=== PATIENT | female | born 1950 | race African-American/Black ===

== ENCOUNTER 2016-04-19 09:20 | Inpatient (IN) | payer BC ==
[~2016-04-19] VITALS: Ht 177.8 cm; Wt 84.8 kg
[2016-04-19] VITALS (13 sets, daily range): BP systolic 128–150; BP diastolic 68–90
--- NOTE | 2016-04-19 07:59 | Pre-Procedure Note/Attestation ---
Pre-Procedure Note/Attestation Complete Prior to Procedure Planned Procedure: bilateral Procedure Narrative: Posterior lumbar wound irrigation and debridement and removal of posterior interspinous metallic hardware, possible removal of the interspinous graft, revision of lumbar wound Attestation I attest that I discussed the nature of the procedure; its benefits; risks and complications; and alternatives (and the risks and benefits of such alternatives ), prior to the procedure, with the patient (or the patient's legal inside outside sales representative). I attest that, if there was a reasonable possibility of needing a blood transfusion, the patient (or the patient's legal inside outside sales representative) was given the [facility] standardized written summary, pursuant to the Frankie Anil Blood Safety Act ([place] Health and Safety Code # 1645, as amended). I attest that I re-evaluated the patient just prior to the surgery and that there has been no change in the patient's H&P, except as documented below: RUSTAM MIRAMONTES Apr 19, 2016 07:59
[2016-04-19] MEDS ORDERED: ATENOLOL25 MG ORAL (10:53)
[2016-04-19] MEDS ORDERED: ASPIRIN81 MG ORAL (10:53)
[2016-04-19] MEDS ORDERED: LOSARTAN POTASS50 MG ORAL (10:53)
[2016-04-19] MEDS ORDERED: LIPITOR20 MG ORAL (10:53)
[2016-04-19] MEDS ORDERED: HYDROCHLOROTHIA25 MG ORAL (10:53)
[2016-04-19] MEDS ORDERED: HUMALOG MI100 UNIT/7 SUBQ (10:54)
[2016-04-19] MEDS ORDERED: LANTUS SOL100 UNIT/1 SUBQ (10:54)
[2016-04-19] MEDS ORDERED: Vancomycin 1gm/D5W 275ml IVPB ONE ×2 (11:00)
[2016-04-19] MEDS ORDERED: Pantoprazole Inj IVP ONE (11:00)
[2016-04-19] MEDS ORDERED: LR 1000ml 1,000 ML IVLG SCH (12:14)
--- NOTE | 2016-04-19 12:14 | Anethesia Preoperative Eval ---
Anesthesia Pre-op PMH/ROS General Date of Evaluation: Apr 19, 2016 Time of Evaluation: 13:41 Anesthesiologist: Paco ASA Score: ASA 3 Mallampati Score Class I : Soft palate, uvula, fauces, pillars visible Class II: Soft palate, uvula, fauces visible Class III: Soft palate, base of uvula visible Class IV: Only hard plate visible Mallampati Classification: Class II Surgeon: Xiomy Diagnosis: Back Pain Surgical Procedure: Remove L3-4 Hardware, Closure with a drain Anesthesia History: none Family History: no anesthesia problems Allergies: Coded Allergies: No Known Allergies (Unverified , 04/19/16) Medications: see eMAR Past Medical History Cardiovascular: Reports: CAD - Andioplasty, HTN Pulmonary: Reports: asthma, other - R Upper Lobectomy Endocrine: Reports: DM Musculoskeletal/Integumentary: Reports: DDD PSxH Narrative: JULIÁN, HHR, R upper Lobectomy, Angioplasty, Lumbar Fusion Anesthesia Pre-op Phys. Exam Physician Exam Last Vital Signs Date Time Temp Pulse Resp B/P Pulse Ox O2 Delivery O2 Flow Rate FiO2 04/19/16 10:09 97.7 69 18 145/90 99 Room Air Constitutional: NAD Neurologic: CN 2-12 intact Cardiovascular: RRR Respiratory: CTA Gastrointestinal: S/NT/ND Airway Exam Mallampati Score: Class II MO: limited ROM: limited Teeth: intact Anesthesia Pre-op A/P Risk Assessment & Plan Assessment: ASA 3 Plan: GA, BIS, Glidescope Pre-Antibiotics Dru Gram Vancomycin IV Given Within 1 Hr of Incision: Yes Time Given: 13:41 Delgado Antonio MD Apr 19, 2016 12:14
[2016-04-19] MEDS ORDERED: DiphenhydrAMINE 50mg/ml Inj IVP PRN ×2 (12:15→17:45)
[2016-04-19] MEDS ORDERED: Norco 5mg/325mg tab ORAL PRN ×2 (12:15→17:15)
[2016-04-19] MEDS ORDERED: Ketorolac 30mg Inj IV PRN ×2 (12:15→17:15)
[2016-04-19] MEDS ORDERED: Atropine Inj 1mg/10ml Syr IV PRN ×2 (12:15→17:15)
[2016-04-19] MEDS ORDERED: Metoclopramide 10mg/2ml Inj IVP PRN ×2 (12:15→17:15)
[2016-04-19] MEDS ORDERED: Hydromorphone 0.5mg/0.5ml inj IVP PRN (12:15)
[2016-04-19] MEDS ORDERED: fentaNYL 100 mcg/2 mL IV PRN (12:15)
[2016-04-19] MEDS ORDERED: LORazepam Inj 2mg/ml 1ml IV PRN ×2 (12:15→17:15)
[2016-04-19] MEDS ORDERED: Norco 7.5mg/325mg tab ORAL PRN ×3 (12:15→17:15)
[2016-04-19] MEDS ORDERED: Ketorolac 60mg Inj IV PRN ×2 (12:15→17:15)
[2016-04-19] MEDS ORDERED: Meperidine 25mg/ml Inj IV PRN ×2 (12:15→17:15)
[2016-04-19] MEDS ORDERED: Oxycodone/Acetaminophen 5-325 ORAL PRN ×2 (12:15→17:15)
[2016-04-19] MEDS ORDERED: Labetalol 5mg/ml 20ml vial IV PRN ×2 (12:15→17:15)
[2016-04-19] MEDS ORDERED: Midazolam 2mg/2ml Inj IVP PRN ×2 (12:15→17:15)
--- NOTE | 2016-04-19 12:20 | Immediate Post-Op Evaluation ---
Immediate Post-Op Evalulation Immediate Post-Op Evalulation Procedure: Remove L3-4 Hardware, Closure with a drain Date of Evaluation: Apr 19, 2016 Time of Evaluation: 16:29 IV Fluids: 900 LR Blood Products: 0 Estimated Blood Loss: 25 Urinary Output: 0 Blood Pressure Systolic: 133 Blood Pressure Diastolic: 76 Pulse Rate: 74 Respiratory Rate: 16 O2 Sat by Pulse Oximetry: 100 Temperature (Fahrenheit): 97 Pain Score (1-10): 3 Nausea: No Vomiting: No Complications 0 Patient Status: awake, reacts, patent, extubated, none Hydration Status: adequate Dru Gram Vancomycin IV Given Within 1 Hr of Incision: Yes Time Given: 13:41 Delgado Antonio MD Apr 19, 2016 12:20
[2016-04-19] MEDS ORDERED: Bacitracin 50000 Units Vial ONE ×2 (12:56→14:05)
[2016-04-19] MEDS ORDERED: Bacitracin Oint 15gm Tube TOPIC ONE (12:56)
[2016-04-19] MEDS ORDERED: Bupivacaine w/Epi 0.5% 30ml Vial INJ ONE ×2 (12:56→13:08)
[2016-04-19] MEDS ORDERED: Thrombin 5000 units TOPIC ONE (13:07)
[2016-04-19] MEDS ORDERED: Gelfoam Absorbable 1gm powder pkt TOPIC ONE (13:08)
[2016-04-19] MEDS ORDERED: Thrombin 5000 units spray kit TOPIC ONE (13:08)
[2016-04-19] MEDS ORDERED: Vancomycin 1gm inj IVPB ONE ×2 (13:08→15:31)
[2016-04-19] MEDS ORDERED: Acetaminophen (Non formulary) 100 ML IV ONE (13:15)
--- NOTE | 2016-04-19 16:20 | Brief Operative Note ---
Immediate Post Operative Note Operative Note Chief Complaint: small area of lumbar incison draining chronically; lumbar fusion in 09/2014 Pre-op Diagnosis: s/p lumbar fusion Sep 2014 with L3-4 interspinous device small superficial dehisence of lumbar wound with chronic drainage culture negative wound s/p prior I&D in 2015 Procedure: Irrigation and debridement of lumbar wound revision of incision Removal of interspinous hardware PEEK-Ti implant microdissection fluroscopy Plastic surgical closure of 8 cm lumbar wound Post-op Diagnosis: same as pre-op Findings: consistent w/pre-op dx studies Surgeon: Sonia Stauffer Wire Photo Operator News: Steve Carias MD Anesthesiologist: Dr. Herrera Anesthesia: general Specimen: yes - interspinous device X-spine, multiple superficial and deep cultures Complications: none Condition: stable Fluids: 800 cc Estimated Blood Loss: volume - 80 cc Drains: hemovac Implant(s) used?: No SONIA STAUFFER Apr 19, 2016 16:20
[2016-04-19] MEDS ORDERED: Milk of Magnesia 30ml Ud ORAL PRN (16:30)
--- NOTE | 2016-04-19 16:48 | General Progress Note ---
Progress Note Progress Note Neurosurgery Postop S/ Comfortable. O/ Af BP 140/80 P66 Arousable Moves all extremities well Drain minimal output Pt's updated MRSA Internal medicine consult FSBG and sliding scale. RUSTAM MIRAMONTES Apr 19, 2016 16:48
[2016-04-19] MEDS ORDERED: NS Irrig 4000ml IRRIG ONE (17:00)
[2016-04-19] MEDS ORDERED: Docusate 100mg cap ORAL SCH (18:00)
--- NOTE | 2016-04-19 19:13 | History and Physical ---
History of Present Illness General Date patient seen: Apr 19, 2016 Reason for Hospitalization: hardware infection spine Present Illness HPI this is an unfortunate female with history of lumbar disc disease s/p spine surgery with instrumentation uncontrolled diabeetes with hgba1c over 8.3 admmited with back pain no fever no chills now has had a lot of pain no palpiatation denies any ches tpain no diplopia Allergies: Coded Allergies: No Known Allergies (Unverified , 04/19/16) Medication History Scheduled Aspirin* (Aspirin*), 81 MG ORAL DAILY, (Reported) Atenolol* (Tenormin*), 25 MG ORAL DAILY, (Reported) Atorvastatin Calcium* (Lipitor*), 20 MG ORAL BEDTIME, (Reported) Hydrochlorothiazide* (Hydrochlorothiazide*), 25 MG ORAL DAILY, (Reported) Insulin Glargine (Lantus), 20 UNITS SUBQ BEDTIME, (Reported) Insulin Npl/Insulin Lispro (Humalog Mix 50-50 Kwikpen), 25 UNITS SUBQ TID, ( Reported) Losartan Potassium* (Losartan Potassium*), 50 MG ORAL DAILY, (Reported) Patient History History Provided By: Patient Healthcare decision maker venice() Resuscitation status Full Code Advanced Directive on File Yes Past Medical/Surgical History Past Medical/Surgical History: (1) Degenerative disc disease, lumbar (2) Hypertension (3) Diabetes Review of Systems Constitutional: Reports: no symptoms Eye: Reports: no symptoms ENT: Reports: no symptoms Respiratory: Reports: no symptoms Cardiovascular: Reports: no symptoms Endocrine: Reports: other - diabvetic takes insulin lantus 20 qhs Physical Exam General Appearance: WD/WN HEENT: anicteric Neck: non-tender Respiratory/Chest: lungs clear Cardiovascular/Chest: normal rate, regular rhythm, no JVD Abdomen: non tender, soft Skin Exam: other - wound clean and dry dressing and has a drain Neurologic: other - mooves all 4 exdtremity Last 24 Hour Vital Signs Date Time Temp Pulse Resp B/P Pulse Ox O2 Delivery O2 Flow Rate FiO2 04/19/16 17:45 69 18 150/78 96 Nasal Cannula 3.0 04/19/16 17:30 65 15 135/76 99 Nasal Cannula 3.0 04/19/16 17:15 68 14 137/80 98 Nasal Cannula 3.0 04/19/16 17:00 73 17 128/68 98 Nasal Cannula 3.0 04/19/16 16:45 70 20 141/80 100 Simple Mask 6.0 04/19/16 16:26 76 15 131/75 100 Simple Mask 6.0 04/19/16 16:25 71 14 133/78 100 Simple Mask 6.0 04/19/16 16:20 97.0 74 16 130/76 100 Simple Mask 6.0 04/19/16 16:19 74 16 100 04/19/16 10:09 97.7 69 18 145/90 99 Room Air Height (Feet): 5 Height (Inches): 10.00 Weight (Pounds): 187 Medications Current Medications Medications (Trade) Dose Ordered Sig/Teofilo Route PRN Reason Start Time Stop Time Status Last Admin Dose Admin Acetaminophen (Tylenol) 650 mg Q6H PRN ORAL Mild Pain (Pain Scale 1-3) 04/19/16 16:30 05/19/16 16:29 UNV Acetaminophen/ Hydrocodone Bitart ([place] 7.5/325) 1 ea Q3H PRN ORAL pain score 4-6 04/19/16 16:30 04/26/16 16:29 UNV Acetaminophen/ Hydrocodone Bitart ([place] 7.5/325) 2 ea Q3H PRN ORAL pain scale 7-10 04/19/16 16:30 04/26/16 16:29 UNV Atenolol (Tenormin) 25 mg DAILY ORAL 04/20/16 09:00 05/20/16 08:59 UNV Atorvastatin Calcium (Lipitor) 40 mg BEDTIME ORAL 04/19/16 21:00 05/19/16 20:59 UNV Docusate Sodium (Colace) 100 mg TWICE A DAY ORAL 04/19/16 18:00 05/19/16 17:59 UNV Fentanyl Citrate 25 mcg 25 mcg Q10M PRN IV Moderate Pain (Pain Scale 4-6) 04/19/16 12:15 04/19/16 20:30 Gabapentin (Neurontin) 300 mg BEDTIME ORAL 04/19/16 21:00 05/19/16 20:59 UNV Hydrochlorothiazide (Hydrodiuril) 25 mg DAILY ORAL 04/20/16 09:00 05/20/16 08:59 UNV Hydromorphone HCl (Dilaudid) 1 mg Q4H PRN SUBQ Mild Pain (Pain Scale 1-3) 04/19/16 16:30 04/26/16 16:29 UNV Hydromorphone HCl 1 mg 1 mg Q2H PRN IVP Breakthrough Pain 04/19/16 16:30 04/26/16 16:29 UNV Insulin Aspart (NovoLOG) 25 units NOVOTIAC SUBQ 04/19/16 16:50 05/19/16 16:49 UNV Magnesium Hydroxide (Mom) 30 ml QIDPRN PRN ORAL Constipation 04/19/16 16:30 05/19/16 16:29 UNV Senna/Docusate Sodium (Violetta-Colace) 1 ea TWICE A DAY ORAL 04/19/16 18:00 05/19/16 17:59 UNV Sodium Chloride (NS w/KCl 20mEq) 1,000 ml @ 100 mls/hr Q10H IV 04/19/16 16:24 05/19/16 16:23 UNV Sodium Chloride (Sodium Chloride 1000ml bag) 1,000 ml @ 100 mls/hr Q10H IV 04/19/16 11:00 05/19/16 10:59 Vancomycin HCl/ Dextrose (Vancomycin/D5W) 275 ml @ 183.3 mls/ hr EVERY 12 HOURS IV 04/19/16 21:00 04/20/16 10:31 UNV Assessment/Plan Status Narrative THIS IS AN UNFORTUANTE FEMALE WITH SPINE INFECTION S/P iNCISION AND DRAINGE HISTORY OF UNCONTROLLED DIABETES AND HYPERTENSION Assessment/Plan PLAN: ACUUCECHCK SLINGDIN SCALE START JANUVIA ADA DIET AND METFORMIIN WILL GET INFECTIOUS DISEASE TO DFOLLOW NASAL SWAB FOR MRSA SCREEN DVT PROPHYALXIS WITH SCD PT OT PAINCONTROL WILL MONITOR KAHLIL MAYFIELD Apr 19, 2016 19:13
[2016-04-19] MEDS ORDERED: Vancomycin 1 GM in D5W 275 ML IV SCH (21:00)
[2016-04-19] MEDS: Pericolace tab ORAL SCH (21:03)
[2016-04-19] MEDS: Docusate 100mg cap ORAL SCH (21:03)
[2016-04-19] MEDS: NS w/KCl 20mEq 1,000 ML IV SCH (21:04)
[2016-04-19] MEDS: NovoLOG Insulin Flexpen SUBQ SCH (21:04)
[2016-04-19] MEDS: Levemir Flexpen SUBQ SCH (21:05)
[2016-04-19] MEDS: HYDROmorphone 1mg/ml Carpuject SUBQ PRN (22:45)
[2016-04-19] MEDS: Cefepime HCl 2 GM in D5W 110 ML IVPB SCH (22:46)
--- NOTE | 2016-04-19 23:01 | Operative Note - Dictated ---
DATE OF OPERATION: 04/19/2016 PREOPERATIVE DIAGNOSES: 1. Status post lumbar interspinous fusion with lateral fusion in September 2014. 2. History of delayed wound dehiscence with drainage. 3. Status post irrigation and debridement of the incision in 2016. 4. Recurrence of small area of wound dehiscence. 5. Culture negative wound. POSTOPERATIVE DIAGNOSES: 1. Status post lumbar interspinous fusion with lateral fusion in September 2014. 2. History of delayed wound dehiscence with drainage. 3. Status post irrigation and debridement of the incision in 2016. 4. Recurrence of small area of wound dehiscence. 5. Culture negative wound. PROCEDURES: 1. Revision of lumbar wound. 2. Irrigation and debridement of lumbar wound. 3. Removal of interspinous device from the L3-L4 vertebral space at L3-L4 interspinous space. 4. Plastic surgical closure of lumbar wound 8 cm. 5. Placement of epidural drain. 6. Microdissection using operative microscope. 7. Intraoperative use and interpretation of fluoroscopy for localization of spine. SURGEON: Sonia Stauffer M.D. JUNIOR ACCOUNTANT BOOKKEEPER SURGEON: Steve Carias M.D. ANESTHESIOLOGIST: Delgado Antonio M.D. ANESTHESIA TYPE: General endotracheal anesthesia. EBL: 80 mL. IV FLUIDS: 900 mL. SPECIMEN: Lumbar interspinous hardware X-spine was explanted. Multiple wound cultures were taken including tissue cultures. INDICATION: The patient is a pleasant 65-year-old woman with history of scoliosis status post lumbar fusion in the past from L4 through S1 with follow up interspinous fusion and lateral fusion in September 2014. She has a history of delayed wound infection, which was superficial in late 2014, which was treated with antibiotics. She had areas of wound dehiscence in 2015, which was cared for initially with wet-to-dry dressing changes and then with irrigation and debridement. She had a course of antibiotics and her wound was completely clean and healed, until she presented with another superficial dehiscence with drainage in late 2015 and early 2016. These areas were treated multiple times with the silver nitrate and Silvadene. The wound had healed, but then reopened. A CT scan along with MRI of the lumbar spine with and without contrast were performed. There was no evidence of epidural abscess, disciitis or osteomyelitis. There is no evidence of abnormal enhancement within the bone, disc spaces, or otherwise. The wound was also cultured in the past, which showed culture negative wound. Due to the persistence of the drainage from the incision and lack of proper healing, after a long and detailed discussion with patient and informed consent, the patient elected to proceed with the redo irrigation and debridement and removal of the lumbar interspinous hardware. CT scan showed that there was proper fusion and the spinous process device was no longer needed. Risk of the operation including, but not limited to risk of infection, bleeding, nerve damage, paralysis, coma, , spinal fluid leakage, and worsening lumbar deformity requiring additional surgeries in the future were all discussed with her and she elected to proceed. DETAILED PROCEDURE: The patient was identified in the recovery area, was spoken to regarding the procedure and details, and then taken back to the operating room. She underwent an uneventful endotracheal intubation. Hemodynamic lines were established. The patient was placed prone on a Aayush frame. Back was pre-prepped and the time-out was observed. Back was then prepped and draped in sterile fashion. Using a #15 blade, the upper portion of the lumbar wound, which had the small area of 2 mm dehiscence was circumferentially revised and an elliptical island of skin was removed. The sharp dissection was carried down to the level of the fascia. Using a Bovie knife, the lumbar fascia was opened down into the level of the interspinous device. Fluoroscopic image was obtained to localize the device. the hardware was well encapsulated in usual scar tissue. After removing the scar tissue, the lamina was exposed and the interspinous device was identified. The device was intact. The bony elements surrounding the device were solid with no evidence of purulence or infection. The screw for the device was removed and the device was removed in two pieces, without difficulty. There was no complication in the removal process. There was evidence of the inflammatory tissue deep in the fascia around the interspinous device, which was cultured and then sent for tissue evaluation. Multiple other superficial cultures were obtained. Using 4 liters of pulse irrigation with antibiotic irrigation, the wound was irrigated in its entirety. No evidence of purulence was encountered at any point of the wound exploration. After copious irrigation and debridement, the wound was closed in multiple layers. The bony areas of lamina and spinous processes were all healthy and solid. There was excellent bleeding tissue throughout the procedure as well. Hemostasis was obtained using bipolar cautery. Wound was irrigated again and using #0, 2-0, and 3-0 Vicryl stitches, the incision was closed in multiple layers in plastic surgical fashion. The skin was closed using a 4-0 running nylon suture. A drain was placed in the epidural space and brought out through a separate stab incision on the right side and secured to the skin using a 4-0 nylon suture as well. The patient's wound was dressed with sterile dressing and a paper tape. The patient tolerated the procedure well. She was extubated at the end of the case moving all extremities. Instrument count was correct and the patient's was informed of the patient's status at the end the case. COMPLICATIONS: None. Sonia Stauffer M.D. DR: YENI JOB#: [id number] CC: TOVA
[2016-04-20] VITALS (7 sets, daily range): BP systolic 87–129; BP diastolic 43–76
[2016-04-20] MEDS: Vancomycin 750mg/D5W 275ml IVPB SCH ×4 (02:04→14:12)
[2016-04-20] MEDS: NS w/KCl 20mEq 1,000 ML IV SCH (04:00)
[2016-04-20] MEDS: Norco 7.5mg/325mg tab ORAL PRN (05:58)
[2016-04-20] MEDS ORDERED: NovoLOG Insulin Flexpen SUBQ SCH (06:30)
[2016-04-20] MEDS: NovoLOG Insulin Flexpen SUBQ SCH ×4 (06:56→22:28)
[2016-04-20 07:12] LABS: BASOPHILS % (AUTO) 0.8 % (0.0-2.0); EOSINOPHILS % (AUTO) 0.9 % (0.0-3.0); LYMPHOCYTES % (AUTO) 9.8 % (20.0-45.0); MEAN CORPUSCULAR HEMOGLOBIN 28.9 PG (27.0-31.0); MEAN CORPUSCULAR HGB CONC 32.5 G/DL (32.0-36.0); MEAN CORPUSCULAR VOLUME 89 FL (80-99); MEAN PLATELET VOLUME 7.8 FL (6.5-10.1); MONOCYTES % (AUTO) 4.1 % (1.0-10.0); NEUTROPHILS % (AUTO) 84.3 % (45.0-75.0); PLATELET COUNT 239 K/UL (150-450); RED BLOOD COUNT 3.34 M/UL (4.20-5.40); RED CELL DISTRIBUTION WIDTH 13.3 % (11.6-14.8); WHITE BLOOD COUNT 8.9 K/UL (4.8-10.8)
[2016-04-20 07:20] LABS: ANION GAP 16 (5-15); CALCIUM 8.7 mg/dL (8.6-10.2); CARBON DIOXIDE 22 mEQ/L (20-30); CHLORIDE 100 mEQ/L (98-107); CREATININE 1.1 mg/dL (0.5-0.9); GLOMERULAR FILTRATION RATE > 60 mL/min (>60); HEMOLYSIS 3; POTASSIUM 5.7 mEQ/L (3.4-4.9); SODIUM 138 mEQ/L (135-145)
[2016-04-20] MEDS: Cefepime HCl 2 GM in D5W 110 ML IVPB SCH ×2 (09:07→22:29)
[2016-04-20] MEDS: Docusate 100mg cap ORAL SCH ×2 (09:07→18:02)
[2016-04-20] MEDS: Lactobacillus-GG tablet ORAL SCH ×2 (09:08→18:02)
[2016-04-20] MEDS: Atenolol 25mg tab ORAL SCH (09:08)
[2016-04-20] MEDS: Pericolace tab ORAL SCH ×2 (09:08→18:01)
--- NOTE | 2016-04-20 10:15 | Consultation ---
Consult Note Consult Note ID Diuc # [id number] TATA MARISCAL M.D. Apr 20, 2016 10:15
[2016-04-20] MEDS: HYDROmorphone 1mg/ml Carpuject SUBQ PRN ×2 (12:12→22:34)
[2016-04-20] MEDS ORDERED: Sterile Water Irrig 1000ml IRRIG ONE (13:41)
[2016-04-20] MEDS ORDERED: Zemuron 50mg/5ml Inj IV ONE (13:41)
[2016-04-20] MEDS ORDERED: LR 1000ml ONE (13:41)
[2016-04-20] MEDS ORDERED: Lidocaine 1% Plain 30 ml INJ ONE (13:41)
[2016-04-20] MEDS ORDERED: Propofol 10mg/ml 100ml btl IV ONE (13:41)
[2016-04-20] MEDS ORDERED: Glycopyrrolate 0.2mg/ml 1ml Vial ONE (13:41)
[2016-04-20] MEDS ORDERED: fentaNYL 250mcg/5ml ONE (13:41)
[2016-04-20] MEDS ORDERED: NS Irrig 1000ml ONE (13:41)
[2016-04-20] MEDS ORDERED: Neostigmine 1mg/ml 10ml Inj ONE (13:41)
[2016-04-20] MEDS ORDERED: Lidocaine 1% MPF 10mg/ml 5ml ONE (13:41)
--- NOTE | 2016-04-20 13:45 | Diagnostic Imaging Report ---
Indication: Back pain Comparison: None Findings: Fluoroscopic views of the lumbar spine were obtained. Images show revision of hardware within the lower lumbar spine. Removal of what appears to be the L4 pedicle screw noted. L5-S1 pedicle screws and fusion rods remain. Impression: Intraoperative imaging
[2016-04-20 15:08] LABS: ANION GAP 15 (5-15); CALCIUM 8.5 mg/dL (8.6-10.2); CARBON DIOXIDE 24 mEQ/L (20-30); CHLORIDE 101 mEQ/L (98-107); CREATININE 1.1 mg/dL (0.5-0.9); GLOMERULAR FILTRATION RATE > 60 mL/min (>60); HEMOLYSIS 4; POTASSIUM 4.8 mEQ/L (3.4-4.9); SODIUM 140 mEQ/L (135-145)
--- NOTE | 2016-04-20 17:23 | General Progress Note ---
Progress Note Progress Note S/ incisional pain. No fever. Appetite is better. Ambulated. voided O/ VS Last 24 Hour Vital Signs Date Time Temp Pulse Resp B/P Pulse Ox O2 Delivery O2 Flow Rate FiO2 04/20/16 16:00 97.2 83 20 94/53 93 Room Air 04/20/16 11:46 97.0 84 14 118/69 94 Room Air 04/20/16 09:08 75 129/76 04/20/16 07:49 98.6 75 15 129/76 96 Room Air 04/20/16 04:00 97.2 76 18 101/62 98 Room Air 04/20/16 00:00 97.5 82 18 106/64 92 Room Air 04/19/16 19:00 97.0 81 20 137/76 99 Nasal Cannula 2.0 04/19/16 18:30 97.9 64 15 145/75 98 Nasal Cannula 3.0 04/19/16 18:15 66 16 149/78 100 Nasal Cannula 3.0 04/19/16 18:00 66 14 144/74 98 Nasal Cannula 3.0 04/19/16 17:45 69 18 150/78 96 Nasal Cannula 3.0 04/19/16 17:30 65 15 135/76 99 Nasal Cannula 3.0 04/19/16 17:15 68 14 137/80 98 Nasal Cannula 3.0 04/19/16 17:00 73 17 128/68 98 Nasal Cannula 3.0 On exam Alert and oriented x 4. pt's is at the bedside incision dressing changed, incision is clean dry and intact moves all extremities well sensation normal in all extremities HV in place Laboratory Tests 04/20/16 06:10: White Blood Count 8.9, Red Blood Count 3.34L, Hemoglobin 9.7L, Hematocrit 29.7L , Mean Corpuscular Volume 89, Mean Corpuscular Hemoglobin 28.9, Mean Corpuscular Hemoglobin Concent 32.5, Red Cell Distribution Width 13.3, Platelet Count 239, Mean Platelet Volume 7.8, Neutrophils (%) (Auto) 84.3H, Lymphocytes ( %) (Auto) 9.8L, Monocytes (%) (Auto) 4.1, Eosinophils (%) (Auto) 0.9, Basophils (%) (Auto) 0.8, Erythrocyte Sedimentation Rate 59H, Sodium Level 138, Potassium Level 5.7H, Chloride Level 100, Carbon Dioxide Level 22, Anion Gap 16H, Blood Urea Nitrogen 25H, Creatinine 1.1H, Estimat Glomerular Filtration Rate > 60, Glucose Level 197H, Hemoglobin A1c 7.4H, Calcium Level 8.7, C-Reactive Protein, Quantitative 1.2H 04/20/16 14:10: Sodium Level 140, Potassium Level 4.8, Chloride Level 101, Carbon Dioxide Level 24, Anion Gap 15, Blood Urea Nitrogen 25H, Creatinine 1.1H, Estimat Glomerular Filtration Rate > 60, Glucose Level 99, Calcium Level 8.5L micro: spoke with the lab. are the results are pending S/p I&D of lumbar wound and removal of interspinous hardware no obvious visual evidence of infection at surgery ID consult appreciated. Spoke with ID at length. Dr. Miramontes from Infectious disease. At this point we will wait on the intra-op GS and cultures. PT pt's was updated at the bedside. RUSTAM MIRAMONTES Apr 20, 2016 17:23
--- NOTE | 2016-04-20 17:47 | General Progress Note ---
Assessment/Plan Status Narrative s/p spine procedure doign well pt ot dvt prophyalxis pain control will monitor will follow Subjective Date patient seen: Apr 20, 2016 Time patient seen: 17:46 Constitutional: Reports: no symptoms Cardiovascular: Reports: no symptoms Respiratory: Reports: no symptoms Allergies: Coded Allergies: No Known Allergies (Unverified , 04/19/16) Objective Last 24 Hour Vital Signs Date Time Temp Pulse Resp B/P Pulse Ox O2 Delivery O2 Flow Rate FiO2 04/20/16 16:00 97.2 83 20 94/53 93 Room Air 04/20/16 11:46 97.0 84 14 118/69 94 Room Air 04/20/16 09:08 75 129/76 04/20/16 07:49 98.6 75 15 129/76 96 Room Air 04/20/16 04:00 97.2 76 18 101/62 98 Room Air 04/20/16 00:00 97.5 82 18 106/64 92 Room Air 04/19/16 19:00 97.0 81 20 137/76 99 Nasal Cannula 2.0 04/19/16 18:30 97.9 64 15 145/75 98 Nasal Cannula 3.0 04/19/16 18:15 66 16 149/78 100 Nasal Cannula 3.0 04/19/16 18:00 66 14 144/74 98 Nasal Cannula 3.0 Intake and Output 04/19/16 04/20/16 19:00 07:00 Intake Total 100 ml Output Total 635 ml Balance -535 ml IV Total 100 ml Output Urine Total 600 ml Drainage Total 35 ml # Voids 1 3 Laboratory Tests 04/20/16 06:10: White Blood Count 8.9, Red Blood Count 3.34L, Hemoglobin 9.7L, Hematocrit 29.7L , Mean Corpuscular Volume 89, Mean Corpuscular Hemoglobin 28.9, Mean Corpuscular Hemoglobin Concent 32.5, Red Cell Distribution Width 13.3, Platelet Count 239, Mean Platelet Volume 7.8, Neutrophils (%) (Auto) 84.3H, Lymphocytes ( %) (Auto) 9.8L, Monocytes (%) (Auto) 4.1, Eosinophils (%) (Auto) 0.9, Basophils (%) (Auto) 0.8, Erythrocyte Sedimentation Rate 59H, Sodium Level 138, Potassium Level 5.7H, Chloride Level 100, Carbon Dioxide Level 22, Anion Gap 16H, Blood Urea Nitrogen 25H, Creatinine 1.1H, Estimat Glomerular Filtration Rate > 60, Glucose Level 197H, Hemoglobin A1c 7.4H, Calcium Level 8.7, C-Reactive Protein, Quantitative 1.2H 04/20/16 14:10: Sodium Level 140, Potassium Level 4.8, Chloride Level 101, Carbon Dioxide Level 24, Anion Gap 15, Blood Urea Nitrogen 25H, Creatinine 1.1H, Estimat Glomerular Filtration Rate > 60, Glucose Level 99, Calcium Level 8.5L Height (Feet): 5 Height (Inches): 10.00 Weight (Pounds): 187 General Appearance: WD/WN Cardiovascular: normal rate, regular rhythm, regularly irregular, no JVD Respiratory/Chest: lungs clear Abdomen: soft KAHLIL YOST Apr 20, 2016 17:47
[2016-04-20] MEDS: HYDROmorphone 1mg/ml Carpuject IVP PRN (18:02)
--- NOTE | 2016-04-20 21:48 | Consultation ---
DATE OF CONSULTATION: INFECTIOUS DISEASE CONSULTATION CONSULTING PHYSICIAN: Pollo Miramontes M.D. REQUESTING PHYSICIAN: Alen Schulz M.D. REASON FOR CONSULTATION: Evaluation of the patient for osteomyelitis of the spine, surgical site infection, antibiotic management. HISTORY OF PRESENT ILLNESS: The patient is a 65-year-old female with multiple medical problems, was admitted to this medical center because of drainage from the surgical site. The patient had a lumbar interspinous fusion in September 2004, however, the patient developed infection recently in the site. The patient took some oral antibiotics before admission and yesterday the patient underwent irrigation and debridement of the area. Also, the patient's hardware were removed. Infectious Disease consultation has been requested for further evaluation of the patient and antibiotic management. PAST MEDICAL HISTORY: 1. History of coronary artery disease. 2. Hyperlipidemia. 3. Hypertension. 4. Asthma. 5. History of right upper lobe lobectomy. 6. Hiatal hernia. 7. History of fibroid. 8. Hysterectomy. 9. Diabetes. ALLERGIES: No known drug allergies. SOCIAL HISTORY: Negative for alcohol or drug abuse. FAMILY HISTORY: Noncontributory. PHYSICAL EXAMINATION: VITAL SIGNS: Temperature is 98.6, blood pressure is 129/76, pulse 75, and respiratory rate 18. HEENT: Mild pale conjunctivae. No icterus. NECK: Supple. CHEST: Coarse breathing sounds. HEART: S1 and S2. ABDOMEN: Soft. BACK: The patient has an incision in the area that is covered by dressing, not able to evaluate. NEUROLOGIC: Awake and alert. LABORATORY AND DIAGNOSTIC DATA: White blood cells 8.9, hemoglobin 9.7, and platelets 239,000. BUN 25 and creatinine 1. C-reactive protein 1.2. ASSESSMENT: The patient is a 65-year-old female with multiple medical problems, was admitted to this medical center due to chronic drainage and probable infection of the spine where the patient had hardware placed for the fusion. The patient underwent removal of the hardware and irrigation and debridement. Cultures have been sent, that is pending. The patient may benefit from prolonged antibiotics for possible osteomyelitis and probable infection. PLAN: 1. We will continue the patient on IV vancomycin and cefepime. 2. Monitor CBC. 3. Monitor BMP. 4. Monitor cultures. 5. We will try to get in touch with the neurosurgeon to get further insights regarding the findings during operation. I will follow the patient, and based on the findings and culture results, we will do further recommendations. Thank you, Dr. Schulz, for allowing me to participate in the care of this patient. I will follow the patient with you during this hospitalization. Pollo Miramontes M.D. DR: JAY JOB#: [id number] CC:
[2016-04-20] MEDS: Levemir Flexpen SUBQ SCH (22:29)
[2016-04-20] MEDS ORDERED: Tubing IV Secondary IV ONE (22:52)
[2016-04-21] VITALS: BP 113/65
[2016-04-21] MEDS: HYDROmorphone 1mg/ml Carpuject IVP PRN ×3 (03:25→23:59)
[2016-04-21] MEDS: Vancomycin 750mg/D5W 275ml IVPB SCH ×4 (03:29→13:28)
[2016-04-21 04:00] VITALS: BP 110/67
[2016-04-21] MEDS: NovoLOG Insulin Flexpen SUBQ SCH ×4 (06:31→21:33)
[2016-04-21 07:47] VITALS: BP 109/64
[2016-04-21] MEDS: Atenolol 25mg tab ORAL SCH (08:46)
[2016-04-21] MEDS: Cefepime HCl 2 GM in D5W 110 ML IVPB SCH ×2 (08:47→21:29)
[2016-04-21] MEDS: Pericolace tab ORAL SCH ×2 (08:47→17:30)
[2016-04-21] MEDS: Lactobacillus-GG tablet ORAL SCH ×2 (08:47→17:31)
[2016-04-21] MEDS: Docusate 100mg cap ORAL SCH ×2 (08:47→17:29)
[2016-04-21] MEDS: HYDROmorphone 1mg/ml Carpuject SUBQ PRN ×2 (09:46→19:12)
[2016-04-21 10:25] LABS: CALCIUM 8.8 mg/dL (8.6-10.2); CREATININE 1.5 mg/dL (0.5-0.9); GLOMERULAR FILTRATION RATE 42.3 mL/min (>60); POTASSIUM 4.8 mEQ/L (3.4-4.9)
[2016-04-21 11:35] VITALS: BP 132/89
[2016-04-21 14:11] LABS: EOSINOPHILS % (AUTO) 3.2 % (0.0-3.0); LYMPHOCYTES % (AUTO) 22.1 % (20.0-45.0); MEAN CORPUSCULAR HEMOGLOBIN 29.1 PG (27.0-31.0); MEAN CORPUSCULAR HGB CONC 32.7 G/DL (32.0-36.0); MEAN CORPUSCULAR VOLUME 89 FL (80-99); MEAN PLATELET VOLUME 8.1 FL (6.5-10.1); MONOCYTES % (AUTO) 5.6 % (1.0-10.0); NEUTROPHILS % (AUTO) 68.1 % (45.0-75.0); PLATELET COUNT 194 K/UL (150-450); RED BLOOD COUNT 3.07 M/UL (4.20-5.40); WHITE BLOOD COUNT 8.8 K/UL (4.8-10.8)
[2016-04-21 16:13] VITALS: BP 114/75
--- NOTE | 2016-04-21 17:26 | General Progress Note ---
Assessment/Plan Status Narrative diabetes spine surgery infected hardware antibviotyi c await for final richy baljinder riverswo diabetes contineu osbaldo marinelli tmeasures Subjective Date patient seen: Apr 21, 2016 Constitutional: Reports: no symptoms HEENT: Reports: no symptoms Cardiovascular: Reports: no symptoms Respiratory: Reports: no symptoms Gastrointestinal/Abdominal: Reports: no symptoms Allergies: Coded Allergies: No Known Allergies (Unverified , 04/19/16) Objective Last 24 Hour Vital Signs Date Time Temp Pulse Resp B/P Pulse Ox O2 Delivery O2 Flow Rate FiO2 04/21/16 16:13 97.3 86 15 114/75 97 Room Air 04/21/16 11:35 98.2 90 15 132/89 2 04/21/16 08:46 98 109/64 04/21/16 07:47 99.3 98 17 109/64 92 Nasal Cannula 04/21/16 04:00 99.5 101 18 110/67 91 Room Air 04/21/16 00:00 98.8 95 18 113/65 93 Room Air 04/20/16 22:20 126/68 98 04/20/16 19:00 99.3 92 20 87/43 95 Room Air Intake and Output 04/20/16 04/21/16 19:00 07:00 Intake Total 2240 ml 895.000 ml Output Total 740 ml 480 ml Balance 1500 ml 415.000 ml Intake Oral 900 ml 360 ml IV Total 1340 ml 535.000 ml Output Urine Total 700 ml 460 ml Drainage Total 40 ml 20 ml # Voids 5 Laboratory Tests 04/21/16 01:05: Vancomycin Level Trough 14.0H 04/21/16 08:35: Sodium Level 137, Potassium Level 4.8, Chloride Level 99, Carbon Dioxide Level 21, Anion Gap 17H, Blood Urea Nitrogen 29H, Creatinine 1.5H, Estimat Glomerular Filtration Rate 42.3, Glucose Level 128H, Calcium Level 8.8 04/21/16 13:30: White Blood Count 8.8, Red Blood Count 3.07L, Hemoglobin 8.9L, Hematocrit 27.3L , Mean Corpuscular Volume 89, Mean Corpuscular Hemoglobin 29.1, Mean Corpuscular Hemoglobin Concent 32.7, Red Cell Distribution Width 13.0, Platelet Count 194, Mean Platelet Volume 8.1, Neutrophils (%) (Auto) 68.1, Lymphocytes (% ) (Auto) 22.1, Monocytes (%) (Auto) 5.6, Eosinophils (%) (Auto) 3.2H, Basophils (%) (Auto) 1.0 Height (Feet): 5 Height (Inches): 10.00 Weight (Pounds): 187 General Appearance: WD/WN Neck: supple Cardiovascular: no JVD Respiratory/Chest: lungs clear Abdomen: soft KAHLIL YOST Apr 21, 2016 17:25
[2016-04-21 20:00] VITALS: BP 109/67
--- NOTE | 2016-04-21 21:23 | General Progress Note ---
Progress Note Progress Note S/Feeling better. Ambulated with PT. voiding. no leg pain O/ VS Last 24 Hour Vital Signs Date Time Temp Pulse Resp B/P Pulse Ox O2 Delivery O2 Flow Rate FiO2 04/21/16 16:13 97.3 86 15 114/75 97 Room Air 04/21/16 11:35 98.2 90 15 132/89 2 04/21/16 08:46 98 109/64 04/21/16 07:47 99.3 98 17 109/64 92 Nasal Cannula 04/21/16 04:00 99.5 101 18 110/67 91 Room Air 04/21/16 00:00 98.8 95 18 113/65 93 Room Air 04/20/16 22:20 126/68 98 On exam HV 25 cc serosang clear drainage Alert and oriented in good spirit Incision is completely dry moves all extremities well Labs Microbiology Date/Time Source Procedure Growth Status 04/19/16 10:05 Nasal Nares MRSA Culture - Final NO METHICILLIN RESISTANT STAPH AUREUS... Complete 04/19/16 14:49 Tissue Gram Stain - Final Resulted 04/19/16 14:49 Tissue Surgical Biopsy Culture - Preliminary NO GROWTH Resulted 04/19/16 14:49 Back Gram Stain - Final Resulted 04/19/16 14:49 Back Aerobic Culture - Preliminary NO GROWTH Resulted 04/19/16 14:49 Back Anaerobic Culture - Preliminary NO GROWTH Resulted 04/19/16 14:49 Back Gram Stain - Final Resulted 04/19/16 14:49 Back Aerobic Culture - Preliminary NO GROWTH Resulted 04/19/16 14:49 Back Anaerobic Culture - Preliminary NO GROWTH Resulted 04/19/16 14:49 Back Gram Stain - Final Resulted 04/19/16 14:49 Back Surgical Biopsy Culture Pending Resulted 04/19/16 14:49 Back Aerobic Culture - Preliminary NO GROWTH Resulted 04/19/16 14:49 Back Anaerobic Culture - Preliminary NO GROWTH Resulted Laboratory Tests Test 04/21/16 01:05 04/21/16 08:35 04/21/16 13:30 Vancomycin Level Trough 14.0 ug/mL (5.0-12.0) H Sodium Level 137 mEQ/L (135-145) Potassium Level 4.8 mEQ/L (3.4-4.9) Chloride Level 99 mEQ/L (98-107) Carbon Dioxide Level 21 mEQ/L (20-30) Anion Gap 17 (5-15) H Blood Urea Nitrogen 29 mg/dL (7-23) H Creatinine 1.5 mg/dL (0.5-0.9) H Estimat Glomerular Filtration Rate 42.3 mL/min (>60) Glucose Level 128 mg/dL (74-106) H Calcium Level 8.8 mg/dL (8.6-10.2) White Blood Count 8.8 K/UL (4.8-10.8) Red Blood Count 3.07 M/UL (4.20-5.40) L Hemoglobin 8.9 G/DL (12.0-16.0) L Hematocrit 27.3 % (37.0-47.0) L Mean Corpuscular Volume 89 FL (80-99) Mean Corpuscular Hemoglobin 29.1 PG (27.0-31.0) Mean Corpuscular Hemoglobin Concent 32.7 G/DL (32.0-36.0) Red Cell Distribution Width 13.0 % (11.6-14.8) Platelet Count 194 K/UL (150-450) Mean Platelet Volume 8.1 FL (6.5-10.1) Neutrophils (%) (Auto) 68.1 % (45.0-75.0) Lymphocytes (%) (Auto) 22.1 % (20.0-45.0) Monocytes (%) (Auto) 5.6 % (1.0-10.0) Eosinophils (%) (Auto) 3.2 % (0.0-3.0) H Basophils (%) (Auto) 1.0 % (0.0-2.0) S/p Removal of hardware Awaiting final culture results Antibiotics per ID Pain control protein supplementation RUSTAM MIRAMONTES Apr 21, 2016 21:23
[2016-04-21] MEDS: Levemir Flexpen SUBQ SCH (21:34)
[2016-04-22] VITALS: BP 116/69
[2016-04-22] MEDS: Vancomycin 750mg/D5W 275ml IVPB SCH ×6 (02:00→13:38)
[2016-04-22 04:00] VITALS: BP 126/73
[2016-04-22] MEDS: NovoLOG Insulin Flexpen SUBQ SCH ×4 (06:31→21:56)
[2016-04-22 08:15] VITALS: BP 129/69
[2016-04-22] MEDS: Docusate 100mg cap ORAL SCH ×2 (09:45→17:01)
[2016-04-22] MEDS: Pericolace tab ORAL SCH ×2 (09:45→17:00)
[2016-04-22] MEDS: Lactobacillus-GG tablet ORAL SCH ×2 (09:45→17:00)
[2016-04-22] MEDS: Atenolol 25mg tab ORAL SCH (09:45)
[2016-04-22] MEDS: Norco 7.5mg/325mg tab ORAL PRN ×3 (10:20→19:36)
[2016-04-22] MEDS: Cefepime HCl 2 GM in D5W 110 ML IVPB SCH ×2 (10:54→20:17)
[2016-04-22 12:15] VITALS: BP 109/61
--- NOTE | 2016-04-22 12:16 | Infectious Diseases Prog Note ---
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 DM HPN CAD P: Continue Vancomycin & Cefepime Will f/u cultures Subjective ROS Limited/Unobtainable: No Constitutional: Reports: no symptoms Respiratory: Reports: productive cough Gastrointestinal/Abdominal: Reports: no symptoms Musculoskeletal: Reports: other - back pain, pain Allergies: Coded Allergies: No Known Allergies (Unverified , 04/19/16) Objective Vital Signs Last 24 Hour Vital Signs Date Time Temp Pulse Resp B/P Pulse Ox O2 Delivery O2 Flow Rate FiO2 04/22/16 09:45 80 129/69 04/22/16 08:15 98.2 80 19 129/69 94 Nasal Cannula 2.0 04/22/16 04:00 98.1 79 18 126/73 93 Room Air 04/22/16 00:00 97.9 86 19 116/69 92 Room Air 04/21/16 20:00 98.0 89 18 109/67 94 Room Air 04/21/16 16:13 97.3 86 15 114/75 97 Room Air Height (Feet): 5 Height (Inches): 10.00 Weight (Pounds): 187 General Appearance: no acute distress HEENT: mucous membranes moist Respiratory/Chest: lungs clear Cardiovascular: normal rate Abdomen: soft, non tender Extremities: no edema Neurologic/Psychiatric: alert, oriented x 3, responsive Microbiology Date/Time Source Procedure Growth Status 04/19/16 14:49 Tissue Gram Stain - Final Resulted 04/19/16 14:49 Tissue Surgical Biopsy Culture - Preliminary NO GROWTH AFTER 48 HOURS Resulted 04/19/16 14:49 Back Gram Stain - Final Resulted 04/19/16 14:49 Back Aerobic Culture - Preliminary NO GROWTH AFTER 48 HOURS Resulted 04/19/16 14:49 Back Anaerobic Culture - Preliminary NO GROWTH Resulted 04/19/16 14:49 Back Gram Stain - Final Resulted 04/19/16 14:49 Back Aerobic Culture - Preliminary NO GROWTH AFTER 48 HOURS Resulted 04/19/16 14:49 Back Anaerobic Culture - Preliminary NO GROWTH Resulted 04/19/16 14:49 Back Gram Stain - Final Resulted 04/19/16 14:49 Back Surgical Biopsy Culture - Preliminary NO GROWTH AFTER 48 HOURS Resulted 04/19/16 14:49 Back Aerobic Culture - Preliminary NO GROWTH AFTER 48 HOURS Resulted 04/19/16 14:49 Back Anaerobic Culture - Preliminary NO GROWTH Resulted Laboratory Tests Test 3/4/17 13:30 White Blood Count 8.8 K/UL (4.8-10.8) Red Blood Count 3.07 M/UL (4.20-5.40) L Hemoglobin 8.9 G/DL (12.0-16.0) L Hematocrit 27.3 % (37.0-47.0) L Mean Corpuscular Volume 89 FL (80-99) Mean Corpuscular Hemoglobin 29.1 PG (27.0-31.0) Mean Corpuscular Hemoglobin Concent 32.7 G/DL (32.0-36.0) Red Cell Distribution Width 13.0 % (11.6-14.8) Platelet Count 194 K/UL (150-450) Mean Platelet Volume 8.1 FL (6.5-10.1) Neutrophils (%) (Auto) 68.1 % (45.0-75.0) Lymphocytes (%) (Auto) 22.1 % (20.0-45.0) Monocytes (%) (Auto) 5.6 % (1.0-10.0) Eosinophils (%) (Auto) 3.2 % (0.0-3.0) H Basophils (%) (Auto) 1.0 % (0.0-2.0) Current Medications Medications (Trade) Dose Ordered Sig/Teofilo Route PRN Reason Start Time Stop Time Status Last Admin Dose Admin Acetaminophen (Tylenol) 650 mg Q6H PRN ORAL Mild Pain (Pain Scale 1-3) 04/19/16 16:30 05/19/16 16:29 Acetaminophen/ Hydrocodone Bitart ([place] 7.5/325) 1 ea Q3H PRN ORAL pain score 4-6 04/19/16 16:30 04/26/16 16:29 04/22/16 10:20 Acetaminophen/ Hydrocodone Bitart ([place] 7.5/325) 2 ea Q3H PRN ORAL pain scale 7-10 04/19/16 16:30 04/26/16 16:29 Atenolol (Tenormin) 25 mg DAILY ORAL 04/20/16 09:00 05/20/16 08:59 04/22/16 09:45 Atorvastatin Calcium (Lipitor) 40 mg BEDTIME ORAL 04/19/16 21:00 05/19/16 20:59 04/21/16 21:29 Cefepime HCl 2 gm/ Dextrose 110 ml @ 220 mls/hr Q12HR IVPB 04/19/16 22:00 04/26/16 21:59 04/22/16 10:54 Dextrose (Dextrose 50%) STAT PRN IV Hypoglycemia 04/19/16 19:15 05/19/16 19:14 Docusate Sodium (Colace) 100 mg TWICE A DAY ORAL 04/19/16 20:00 05/19/16 19:59 04/22/16 09:45 Gabapentin (Neurontin) 300 mg BEDTIME ORAL 04/19/16 21:00 05/19/16 20:59 04/21/16 21:29 Hydrochlorothiazide (Hydrodiuril) 25 mg DAILY ORAL 04/20/16 09:00 05/20/16 08:59 04/22/16 09:45 Hydromorphone HCl (Dilaudid) 1 mg Q2H PRN IVP Breakthrough Pain 04/19/16 16:30 04/26/16 16:29 04/21/16 23:59 Hydromorphone HCl (Dilaudid) 1 mg Q4H PRN SUBQ Mild Pain (Pain Scale 1-3) 04/19/16 16:30 04/26/16 16:29 04/21/16 19:12 Insulin Aspart (NovoLOG) BEFORE MEALS AND HS SUBQ 04/19/16 21:00 05/19/16 20:59 04/22/16 06:31 Insulin Detemir (Levemir) 20 units BEDTIME SUBQ 04/19/16 21:00 05/19/16 20:59 04/21/16 21:34 Lactobacillus Acidophilus (Culturelle) 1 tab TWICE A DAY ORAL 04/20/16 09:00 05/20/16 08:59 04/22/16 09:45 Magnesium Hydroxide (Mom) 30 ml QIDPRN PRN ORAL Constipation 04/19/16 16:30 05/19/16 16:29 Oxycodone/ Acetaminophen (Percocet 10/325) 1 tab Q6HR ORAL 04/21/16 18:00 04/28/16 17:59 04/21/16 17:30 Senna/Docusate Sodium (Violetta-Colace) 1 ea TWICE A DAY ORAL 04/19/16 20:00 05/19/16 19:59 04/22/16 09:45 Sitagliptin Phosphate (Januvia) 100 mg ACBREAKFAST ORAL 04/20/16 06:30 05/20/16 06:29 04/22/16 06:29 Vancomycin HCl 1 ea 1 ea DAILY PRN MISC Per rx protocol 04/19/16 19:30 05/19/16 19:29 Vancomycin HCl/ Dextrose (Vancomycin/D5W) 275 ml @ 183.708 mls/hr Q12HR@0200,1400 IVPB 04/21/16 02:00 04/27/16 15:30 04/21/16 13:28 PETROS ARTIS Apr 22, 2016 12:16
[2016-04-22] MEDS: HYDROmorphone 1mg/ml Carpuject SUBQ PRN ×2 (13:37→22:33)
[2016-04-22 15:58] VITALS: BP 151/96
[2016-04-22] MEDS ORDERED: Lidocaine 1% Plain 30 ml INJ PRN (17:00)
[2016-04-22] MEDS ORDERED: Sodium Bicarbonate 8.4% 50ml Inj IV PRN (17:00)
[2016-04-22] MEDS ORDERED: Heparin 2000 units/Ns 1000ml INJ PRN (17:00)
[2016-04-22 20:00] VITALS: BP 131/76
--- NOTE | 2016-04-22 20:37 | General Progress Note ---
Assessment/Plan Status Narrative diabetes s/p removal ogf hardwasre culture s ar enegative so far Assessment/Plan picc line palcement and will follow Subjective Date patient seen: Apr 22, 2016 Time patient seen: 20:36 Constitutional: Reports: no symptoms HEENT: Reports: no symptoms Gastrointestinal/Abdominal: Reports: no symptoms Genitourinary: Reports: no symptoms Allergies: Coded Allergies: No Known Allergies (Unverified , 04/19/16) Objective Last 24 Hour Vital Signs Date Time Temp Pulse Resp B/P Pulse Ox O2 Delivery O2 Flow Rate FiO2 04/22/16 17:25 98.1 04/22/16 15:58 98.1 79 15 151/96 97 Room Air 04/22/16 12:15 97.6 79 21 109/61 96 Room Air 04/22/16 09:45 80 129/69 04/22/16 08:15 98.2 80 19 129/69 94 Nasal Cannula 2.0 04/22/16 04:00 98.1 79 18 126/73 93 Room Air 04/22/16 00:00 97.9 86 19 116/69 92 Room Air Intake and Output 04/21/16 04/22/16 19:00 07:00 Intake Total 1300 ml 120 ml Output Total 920 ml 1390 ml Balance 380 ml -1270 ml Intake Oral 1300 ml 120 ml Output Urine Total 900 ml 1350 ml Drainage Total 20 ml 40 ml # Voids 1 4 Height (Feet): 5 Height (Inches): 10.00 Weight (Pounds): 187 General Appearance: WD/WN Neck: non-tender Cardiovascular: normal rate, regular rhythm, no JVD KAHLIL YOST Apr 22, 2016 20:37
[2016-04-22] MEDS: Levemir Flexpen SUBQ SCH (21:58)
[2016-04-23] VITALS: BP 142/90
[2016-04-23] MEDS: Vancomycin 750mg/D5W 275ml IVPB SCH ×2 (02:00)
[2016-04-23 04:00] VITALS: BP 150/93
[2016-04-23] MEDS: NovoLOG Insulin Flexpen SUBQ SCH ×3 (06:26→16:45)
[2016-04-23 08:00] VITALS: BP 147/83
[2016-04-23] MEDS: Docusate 100mg cap ORAL SCH ×2 (08:43→17:38)
[2016-04-23] MEDS: Pericolace tab ORAL SCH ×2 (08:43→17:39)
[2016-04-23] MEDS: Atenolol 25mg tab ORAL SCH (08:43)
[2016-04-23] MEDS: Lactobacillus-GG tablet ORAL SCH ×2 (08:43→17:39)
[2016-04-23] MEDS: Cefepime HCl 2 GM in D5W 110 ML IVPB SCH (09:00)
--- NOTE | 2016-04-23 09:04 | Infectious Diseases Prog Note ---
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 Hypertension. Asthma. History of right upper lobe lobectomy. Hiatal hernia. History of fibroid. Hysterectomy. Diabetes. PLAN: continue the patient on IV vancomycin and cefepime d# 5 , upon DC will change to po Bactrim x 7 d Monitor CBC. Monitor BMP. Monitor cultures. pt will have Fup w NSx and if further wound dehiscence , will do IV AB Rx of 6 wks, but at this time no need for long AB Rx DC PICC insertion Subjective Constitutional: Denies: anorexia, chills, drenching sweats, fatigue, fever, no symptoms, other Allergies: Coded Allergies: No Known Allergies (Unverified , 04/19/16) Objective Vital Signs Last 24 Hour Vital Signs Date Time Temp Pulse Resp B/P Pulse Ox O2 Delivery O2 Flow Rate FiO2 04/23/16 08:43 83 147/83 04/23/16 08:00 97.9 83 19 147/83 96 Room Air 04/23/16 04:00 97.3 89 18 150/93 97 Room Air 04/23/16 00:00 97.7 86 18 142/90 98 Room Air 04/23/16 00:00 97.9 86 18 142/90 98 Room Air 04/22/16 23:03 97.5 04/22/16 20:35 97.5 04/22/16 20:00 97.5 81 18 131/76 96 Room Air 04/22/16 15:58 98.1 79 15 151/96 97 Room Air 04/22/16 12:15 97.6 79 21 109/61 96 Room Air 04/22/16 09:45 80 129/69 Height (Feet): 5 Height (Inches): 10.00 Weight (Pounds): 187 HEENT: mucous membranes moist Respiratory/Chest: normal breath sounds Cardiovascular: regular rhythm, regularly irregular Abdomen: non distended Current Medications Medications (Trade) Dose Ordered Sig/Teofilo Route PRN Reason Start Time Stop Time Status Last Admin Dose Admin Acetaminophen (Tylenol) 650 mg Q6H PRN ORAL Mild Pain (Pain Scale 1-3) 04/19/16 16:30 05/19/16 16:29 Acetaminophen/ Hydrocodone Bitart ([place] 7.5/325) 1 ea Q3H PRN ORAL pain score 4-6 04/19/16 16:30 04/26/16 16:29 04/22/16 19:36 Acetaminophen/ Hydrocodone Bitart ([place] 7.5/325) 2 ea Q3H PRN ORAL pain scale 7-10 04/19/16 16:30 04/26/16 16:29 04/23/16 08:44 Atenolol (Tenormin) 25 mg DAILY ORAL 04/20/16 09:00 05/20/16 08:59 04/23/16 08:43 Atorvastatin Calcium (Lipitor) 40 mg BEDTIME ORAL 04/19/16 21:00 05/19/16 20:59 04/22/16 21:55 Cefepime HCl 2 gm/ Dextrose 110 ml @ 220 mls/hr Q12HR IVPB 04/19/16 22:00 04/26/16 21:59 04/22/16 10:54 Dextrose (Dextrose 50%) STAT PRN IV Hypoglycemia 04/19/16 19:15 05/19/16 19:14 Docusate Sodium (Colace) 100 mg TWICE A DAY ORAL 04/19/16 20:00 05/19/16 19:59 04/23/16 08:43 Gabapentin (Neurontin) 300 mg BEDTIME ORAL 04/19/16 21:00 05/19/16 20:59 04/22/16 21:55 Heparin Sodium/ Sodium Chloride (Heparin 2000 units/Ns 1000ml premix) 2,000 unit ONCE PRN INJ PICC PLACEMENT 04/22/16 17:00 04/23/16 23:59 Hydrochlorothiazide (Hydrodiuril) 25 mg DAILY ORAL 04/20/16 09:00 05/20/16 08:59 04/23/16 08:43 Hydromorphone HCl (Dilaudid) 1 mg Q2H PRN IVP Breakthrough Pain 04/19/16 16:30 04/26/16 16:29 04/21/16 23:59 Hydromorphone HCl (Dilaudid) 1 mg Q4H PRN SUBQ Mild Pain (Pain Scale 1-3) 04/19/16 16:30 04/26/16 16:29 04/22/16 22:33 Insulin Aspart (NovoLOG) BEFORE MEALS AND HS SUBQ 04/19/16 21:00 05/19/16 20:59 04/22/16 21:56 Insulin Detemir (Levemir) 20 units BEDTIME SUBQ 04/19/16 21:00 05/19/16 20:59 04/22/16 21:58 Lactobacillus Acidophilus (Culturelle) 1 tab TWICE A DAY ORAL 04/20/16 09:00 05/20/16 08:59 04/23/16 08:43 Lidocaine HCl (Xylocaine 1% 30ml) 30 ml ONCE PRN INJ PICC PLACEMENT 04/22/16 17:00 04/23/16 23:59 Magnesium Hydroxide (Mom) 30 ml QIDPRN PRN ORAL Constipation 04/19/16 16:30 05/19/16 16:29 04/23/16 08:43 Oxycodone/ Acetaminophen (Percocet 10/325) 1 tab Q6HR ORAL 04/21/16 18:00 04/28/16 17:59 04/21/16 17:30 Senna/Docusate Sodium (Violetta-Colace) 1 ea TWICE A DAY ORAL 04/19/16 20:00 05/19/16 19:59 04/23/16 08:43 Sitagliptin Phosphate (Januvia) 100 mg ACBREAKFAST ORAL 04/20/16 06:30 05/20/16 06:29 04/23/16 06:25 Sodium Bicarbonate (Sodium Bicarbonate) 50 ml ONCE PRN IV PICC PLACEMENT 04/22/16 17:00 04/23/16 23:59 Vancomycin HCl 1 ea 1 ea DAILY PRN MISC Per rx protocol 04/19/16 19:30 05/19/16 19:29 Vancomycin HCl/ Dextrose (Vancomycin/D5W) 275 ml @ 183.708 mls/hr Q12HR@0200,1400 IVPB 04/21/16 02:00 04/27/16 15:30 04/22/16 13:38 TATA MARISCAL M.D. Apr 23, 2016 09:04
--- NOTE | 2016-04-23 10:29 | 48 Hour Post Anesthesia Eval ---
Post Anesthesia Evaluation Procedure: Remove L3-4 Hardware, Closure with a drain Date of Evaluation: Apr 23, 2016 Time of Evaluation: 13:20 Blood Pressure Systolic: 148 0: 76 Pulse Rate: 72 Respiratory Rate: 20 Temperature (Fahrenheit): 97.6 O2 Sat by Pulse Oximetry: 99 Airway: patent Nausea: No Vomiting: No Pain Intensity: 2 Hydration Status: adequate Cardiopulmonary Status: stable Mental Status/LOC: patient returned to baseline Follow-up Care/Observations: n/a Post-Anesthesia Complications: none Follow-up care needed: N/A MENG LONGO M.D. Apr 23, 2016 10:29
[2016-04-23] MEDS: Bactrim DS (160mg/800mg) tab ORAL SCH ×2 (11:41→17:39)
[2016-04-23 11:48] VITALS: BP 141/9
[2016-04-23 16:00] VITALS: BP 143/79
[2016-04-23] MEDS: Norco 7.5mg/325mg tab ORAL PRN (17:39)
--- NOTE | 2016-04-23 19:41 | General Progress Note ---
Progress Note Progress Note Neurosurgery POD#4 S/ incisional pain well controlled with po pain meds. Ambulated several times. Wants to go home. O/ Vs: Last 24 Hour Vital Signs Date Time Temp Pulse Resp B/P Pulse Ox O2 Delivery O2 Flow Rate FiO2 04/23/16 16:00 97.9 80 20 143/79 94 Room Air 04/23/16 11:48 97.7 85 20 141/9 95 Room Air 04/23/16 10:29 72 20 99 04/23/16 08:43 83 147/83 04/23/16 08:00 97.9 83 19 147/83 96 Room Air 04/23/16 04:00 97.3 89 18 150/93 97 Room Air 04/23/16 00:00 97.7 86 18 142/90 98 Room Air 04/23/16 00:00 97.9 86 18 142/90 98 Room Air 04/22/16 23:03 97.5 04/22/16 20:35 97.5 04/22/16 20:00 97.5 81 18 131/76 96 Room Air on Exam, Alert and oriented x4. Interactive and in good spirits. "Want to go home to see my babies." Incision dressing changed. Incision is completely dry and intact. No fluctuance HV in place. all connection points were reinforced with paper tape. New sterile dressing applied Motor strength 5/5 LE sensation is normal bilaterally Labs all cultures from the wound are negative with No growth Doing well will maintain drain in place 2 more days I spoke with Dr. Miramontes. per ID recommendation , pt will receive two weeks of po Bactrim. Pt will follow-up with me in two days. HV and wound care were discussed with pt and her . They have my direct cell number. RUSTAM MIRAMONTES Apr 23, 2016 19:41
[2016-04-23] MEDS ORDERED: BACTRIM-DS1 EA ORAL (19:42)
[2016-04-23] MEDS ORDERED: BACTRIM DS TAB1 EAC1 ORAL (19:42)
[2016-04-23] MEDS ORDERED: NORCO 10-325 T1 EACH ORAL (19:50)
[2016-04-23] MEDS ORDERED: COLACE100 MG ORAL (19:50)
[2016-04-24] MEDS ORDERED: BACTRIM DS TAB1 EAC1 ORAL (12:04)
--- NOTE | 2016-04-24 12:16 | Discharge Summary ---
Discharge Summary Hospital Course Date of Admission Apr 19, 2016 at 09:20 Date of Discharge Apr 23, 2016 at 20:30 Admitting Diagnosis superficial dehiscence of lumbar wound with chronic drainage possible spinal hardware infection Reason for Hospitalization: elective surgery BUZZ Rhodes is a 65 year old female with history of DJD L spine, lumbar fusion, subsequent I&D , DM , was admitted on Apr 19, 2016 at 09:20 for superficial dehiscence of lumbar wound with chronic drainage , possible spinal hardware infection, for elective surgery. Consultations dr Schulz IM dr iMramontes - ID Procedures 04/[address] Stauffer 1. superficial dehiscence of lumbar wound with chronic drainage superficial dehiscence of lumbar wound with chronic drainage 7. Intraoperative use and interpretation of fluoroscopy for localization of spine. Hospital Course course of recovery uneventful afebrile, no leucocytosis abx, ID followed all cultures negative biopsy negative per ID [id number] -2 wks of Bactrim pain management, PT/OT DVT prophylaxis with SCD BS management with Levemir and SS of insulin, HgA1c not at goal - will need close monitoring of BS as outpatient and further optimization of regimen in order to achieve a better outcome with wound healing BP management with BB and ARB, stable incision healing well neurovascular inatct HV drain left by surgeon and secured in place x 2 more days ambulated pain controlled voided, tolerated diet dc on oral abx and analgesics with HH for wound care and drain care fup with surgeon and PMD DISCHARGE DIAGNOSIS small superficial dehiscence of lumbar wound with chronic drainage 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 1.Revision of lumbar wound. 2. Irrigation and debridement of lumbar wound. 3. Removal of interspinous device from the L3-L4 vertebral space at L3-L4 interspinous space. 4. Plastic surgical closure of lumbar wound 8 cm. 5. Placement of epidural drain. 6. Microdissection using operative microscope. 7. Intraoperative use and interpretation of fluoroscopy for localization of spine. history of lumbar fusion with L3-4 interspinous device ( 09/2014) s/p prior I&D ( 2015) DM, out of control ( HgA1c not at goal) HTN postoperative pain Discharge Medications Continued Medications: Aspirin* (Aspirin*) 81 Mg Tab.chew 81 MG ORAL DAILY, TAB Atenolol* (Tenormin*) 25 Mg Tablet 25 MG ORAL DAILY, TAB Atorvastatin Calcium* (Lipitor*) 20 Mg Tablet 20 MG ORAL BEDTIME, TAB Docusate Sodium* (Colace*) 100 Mg Capsule 200 MG ORAL TWICE A DAY, CAP Hydrochlorothiazide* (Hydrochlorothiazide*) 25 Mg Tablet 25 MG ORAL DAILY, TAB Hydrocodone Bit/Acetaminophen 10-325* ([place] 10-325*) 1 Each Tablet 1 TAB ORAL Q6H PRN for For Pain, #60 TAB 0 Refills PRN PAIN Insulin Glargine (Lantus) 100 Unit/1 Ml Insuln.pen 20 UNITS SUBQ BEDTIME, #1 EA 0 Refills Insulin Npl/Insulin Lispro (Humalog Mix 50-50 Kwikpen) 100 Unit/1 Ml Insuln.pen 25 UNITS SUBQ TID, #1 UNITS 0 Refills Losartan Potassium* (Losartan Potassium*) 50 Mg Tablet 50 MG ORAL DAILY, TAB Trimethoprim/Sulfamethoxazole 160/800* (Bactrim Ds Tablet*) 1 Each Tablet 1 TAB ORAL TWICE A DAY for 7 Days, TAB Discharge Condition Upon Discharge: stable Discharge Disposition Patient was discharged to Home with Home Health() Discharge Diagnoses: Discharge Instructions Discharge Instructions Special Instructions I have been assigned to complete a D/C Summary on this account. I was not involved in the patient management Pavithra Mathews NP ([facility]) Apr 24, 2016 12:16
== END 2016-04-23 20:30 | disposition home health service (06) | DRG 908 ==
LOC: SDSOVERFLO 09:20 → 4E 19:07
PROC: 0JD70ZZ Extraction of Back Subcutaneous Tissue and Fascia, Open Approach (ICD-10-PCS; principal; 2016-04-19 10:30)
PROC: 0SP004Z Removal of Internal Fixation Device from Lumbar Vertebral Joint, Open Approach (ICD-10-PCS; principal; 2016-04-19 10:30)
DX: T81.31XA Disruption of external operation (surgical) wound, not elsewhere classified, initial encounter (principal); M46.26 Osteomyelitis of vertebra, lumbar region; T84.63XA Infection and inflammatory reaction due to internal fixation device of spine, initial encounter; E11.65 Type 2 diabetes mellitus with hyperglycemia; Z90.2 Acquired absence of lung [part of]; Y83.8 Other surgical procedures as the cause of abnormal reaction of the patient, or of later complication, without mention of misadventure at the time of the procedure; I10 Essential (primary) hypertension; Z79.4 Long term (current) use of insulin; Z98.1 Arthrodesis status; I25.10 Atherosclerotic heart disease of native coronary artery without angina pectoris; E78.5 Hyperlipidemia, unspecified; K44.9 Diaphragmatic hernia without obstruction or gangrene; G89.18 Other acute postprocedural pain; Z86.14 Personal history of Methicillin resistant Staphylococcus aureus infection
CPT/HCPCS: 36415; 72020; 76001; 80048; 80202; 82962; 83036; 85025; 85651; 86140; 87070; 87075; 87081; 87205; 94003; 94150; C9399; J1815; J2405; J2710; S5561